=== PATIENT | male | born 1965 | race African-American/Black ===

== ENCOUNTER 2023-08-22 13:41 | Inpatient (IN) | payer MEDICAID, SELFPAY ==
--- NOTE | ~2023-08-22 | CT_ITS ---
EXAMINATION: CT HEAD WITHOUT CONTRAST CLINICAL INFORMATION: Altered mental status COMPARISON: None available. TECHNIQUE: Contiguous axial imaging was performed from the skull base to vertex without intravenous administration of contrast. This CT examination was performed using dose optimization techniques as appropriate, variously including the following: *Automated exposure control *Adjustment of mA and/or kV according to patient size (this includes techniques or standardized protocols for targeted exams where dose is matched to indication/reason for exam; i.e. extremities or head) *Use of iterative reconstruction technique DLP: 1007 mGy-cm FINDINGS: There is no evidence of acute intracranial hemorrhage or edematous territorial infarction. No abnormal mass effect or midline shift is seen. Hernandez to white matter differentiation is well preserved. No abnormal extra-axial fluid collections are identified. The ventricles are normal in size. No abnormal attenuation in the brain parenchyma. No acute calvarial fracture.. Paranasal sinuses and mastoid air cells are well-aerated. CT/CT head/brain wo IV con IMPRESSION: No CT evidence of acute intracranial hemorrhage or edematous large vessel territorial infarction.
--- NOTE | ~2023-08-22 | XR_ITS ---
EXAMINATION: XR CHEST CLINICAL INFORMATION: Mental status change COMPARISON: None available. TECHNIQUE: Frontal view of the chest was obtained. FINDINGS: The lung volumes are low. The cardiac silhouette is enlarged. Hilar and mediastinal contours are unremarkable. Question atelectasis or small infiltrate at the right lung base. The left lung is clear. Question small right pleural effusion. No left pleural effusion. No pneumothorax. XR/XR chest 1V IMPRESSION: Low lung volumes. Enlarged cardiac silhouette. Question atelectasis or small infiltrate at the right lung base and small right pleural effusion.
--- NOTE | 2023-08-22 13:56 | ECG_ITS ---
Test Reason : AMS Blood Pressure : / mmHG Vent. Rate : 064 BPM Atrial Rate : 064 BPM P-R Int : 262 ms QRS Dur : 156 ms QT Int : 554 ms P-R-T Axes : 059 -80 089 degrees QTc Int : 571 ms Sinus rhythm with 1st degree A-V block Possible Left atrial enlargement Left axis deviation Left bundle branch block Abnormal ECG No previous ECGs available Referred By: Liz Schwartz Electronically Signed By:Valentin Weber
[2023-08-22 14:56] VITALS: BP 118/78; PULSE 65; O2SAT 95; BMI 57.0
--- NOTE | 2023-08-22 15:01 | PC.NURSE ---
Addendum entered by Jennifer Eastman 08/22/23 15:02: Notified Eben of the refusal of patient for any labs/IV Original Note: Refusing IV or blood work. will notify provider when one signs up
[2023-08-22 16:13] LABS: Glucose, Whole Blood 82 mg/dL (60-115)
--- NOTE | 2023-08-22 16:13 | ED_ITS ---
HPI - General Adult General Chief complaint: General Medical Stated complaint: AMS, diabetic Time Seen by Provider: 08/22/23 15:51 Source: patient Mode of arrival: EMS History of Present Illness ED Provider: Dr Bah HPI narrative: 57-year-old male who states that he was standing for 3 hours out in the sun at the [place] and then [place] at the bus station and sat down and felt as though he needed to eat something and that his blood sugar was going low, he states he no longer takes medication for his diabetes and he is also endorsing wanting to leave. He is alert and oriented x3. He denies any alcohol/cigarette smoking/illicit drug use/marijuana use. Related Data Allergies Allergy/AdvReac Type Severity Reaction Status Date / Time No Known Allergies Allergy Verified 08/22/23 15:00 Review of Systems 2 Review of Systems: Pertinent positives and negatives as stated in [facility] Past Medical History Source: nursing notes reviewed Medical History (Updated 08/22/23 @ 20:49 by DAVID Reeves) CHF exacerbation Social History Social History Advance Directives: No Advance Directives Information Provided: No Do you have a plan to hurt others: No Plan Physical Exam ED Vital Signs: Vital Signs - 24 hr 08/22/23 17:13 Temperature 98.2 F Pulse Rate 66 Respiratory Rate 18 Blood Pressure 92/54 L Pulse Oximetry 94 Oxygen Delivery Method Room Air BMI result Body Mass Index 57.0 VITAL SIGNS: Reviewed. GENERAL: Well developed, well nourished, in no acute distress. HEAD: Normocephalic/atraumatic EYES: PERRLA, EOMI EARS: Ext canals without abnormality NOSE: Nares patent bilateral OROPHARYNX: no oral lesions noted, posterior pharynx clear NECK: Supple, no adenopathy LUNGS: Normal breath sounds. No adventitious sounds or accessory muscle use. CARDIOVASCULAR: Regular rate and rhythm without noted murmurs, no JVD 1+ bilateral lower extremity edema ABDOMEN: Soft, non-tender, non-distended with bowel sounds. MUSCULOSKELETAL: No tenderness, deformities, or effusions noted on gross inspection. EXTREMITIES: No cyanosis, clubbing or edema. SKIN: Inspection of the skin reveals no rashes NEUROLOGIC: Alert and oriented x 4. Strength and sensation to light touch were grossly intact x 4. Medications Administered Generic Name Dose Route Start Last Admin Trade Name Freq PRN Reason Stop Dose Admin Sodium Chloride 1,000 mls @ 75 mls/hr 08/22/23 20:30 08/22/23 21:02 Ns IVCONT 75 mls/hr .[id number] MOISE Administration Discontinued Medications Generic Name Dose Route Start Last Admin Trade Name Freq PRN Reason Stop Dose Admin Sodium Chloride 1,000 mls @ 999 mls/hr 08/22/23 16:15 08/22/23 17:27 Ns IV 08/22/23 17:15 Not Given .Q1H1M MOISE Potassium Chloride 10 meq in 100 mls @ 100 mls/hr 08/22/23 17:30 08/22/23 20:13 Potassium Chloride/H20 IV 08/22/23 19:29 0 mls/hr Q1H MOISE Infusion Piperacillin Sod/Tazobactam 50 mls @ 100 mls/hr 08/22/23 17:28 08/22/23 19:24 Sod 3.375 gm/ Sodium Chloride IV 08/22/23 17:57 Infused ONCE ONE Infusion Midodrine 2.5 mg 08/22/23 19:48 08/22/23 20:18 Midodrine Hcl 2.5 Mg Tablet PO 08/22/23 19:49 2.5 mg ONCE ONE Administration Potassium Chloride 60 meq 08/22/23 17:26 08/22/23 17:50 Potassium Chloride Er 20 Meq Tab.Er.Prt PO 08/22/23 17:27 60 meq ONCE ONE Administration Procedures EJ/Peripheral Line Arm L: Time Out Performed: No Skin Cleansed in Sterile Fashion: Yes Size (gauge): 18 IV Secured and Dressing Applied: Yes Patient Tolerated Procedure: well Additional Comments: IV placed under ultrasound guidance Arm R: Time Out Performed: No Skin Cleansed in Sterile Fashion: Yes Size (gauge): 18 IV Secured and Dressing Applied: Yes Patient Tolerated Procedure: well Additional Comments: IV placed under ultrasound guidance Medical Decision Making Medical Decision Making [facility] Narrative: 1620: 57-year-old male with history and clinical presentation, DDX: CHF, illicit drugs, hypoglycemia, heat exhaustion/dehydration I requested medical records from [facility] as patient reported that he had recently been admitted to that facility. Patient has significant past medical history hypertension, HLD, nonischemic cardiomyopathy with LV EF 10-15% and recent V-tach cardiac arrest in 03/21/2023 and has a significant history of depression with anxiety, cocaine use, liver cirrhosis and CKD. On my review of his workup today hematologic indices appear to be chronically stable without leukocytosis, the microcytic anemia is stable and consistent with patient's lab values from [facility] 2 days ago. Chemistry indices demonstrate a hypokalemia and will be repleted with 20 mEq via IV and 60 mEq orally and this is likely reflective of patient's use of diuretics. Renal function appears to be mildly worsened when compared to [facility] values and likely responsible for the increase in BNP which is lower than values at [facility]. Patient also did not have significant bibasilar rales although there was 1+ pitting edema to bilateral lower extremities. Chest x-ray here demonstrates possible infiltrate and patient will be empirically treated with Zosyn. Patient is not hypoxic or tachypneic, but is noted to be in FRANKLIN when compared to documentation from [facility], will replete potassium and then proceed with diuresis but at this time I do not feel it is vidal to diurese until potassium levels are somewhat replaced. I did discuss admission with the patient at bedside, he is agreeable for admission. 190: I discussed the case with inpatient hospitalist who accepts admission. Differential Diagnosis Differential Diagnoses: The differential diagnosis associated with the presentation includes Please see the discussion above Admission/Observation Consideration of admission/observation: Escalation of care including admission/observation considered Please see the discussion above Consult Healthcare Provider Management of the patient was discussed with: Hospitalist Please see the discussion above Lab Data MDM Lab Attestation statement: I reviewed the patient's lab results. Please see the discussion above 08/22/23 16:04 08/22/23 16:04 Labs: Lab Results 08/22/23 08/22/23 08/22/23 Range/Units 16:04 16:05 16:10 WBC 5.2 (4.8-10.8) X10*3/uL RBC 5.64 (4.60-5.80) X10*6/uL Hgb 12.0 L (14.0-18.0) g/dl Hct 37.6 L (42.0-52.0) % MCV 66.7 L (80.0-98.0) fL MCH 21.3 L (27.0-33.0) pg MCHC 31.9 (31.0-36.0) g/dl RDW 24.5 H (11.0-16.0) % Plt Count 91 L (160-400) X10*3/uL MPV Not Reportable Immature Gran % (Auto) Cancelled Neut % (Auto) Cancelled Lymph % (Auto) Cancelled [place] % (Auto) Cancelled Eos % (Auto) Cancelled Baso % (Auto) Cancelled Lymph # (Auto) Cancelled [place] # (Auto) Cancelled Eos # (Auto) Cancelled Baso # (Auto) Cancelled Abs Immat Gran (auto) Cancelled Absolute Neuts (auto) Cancelled Absolute Nucleated RBC 0.000 (0.0-0.012) X10*3/uL Nucleated RBC % (auto) 0.0 (0.0-0.2) /100WBC Neutrophils % (Manual) 52 (45-73) % Band Neutrophils % 0 L (3-5) % Lymphocytes % (Manual) 35 (20-40) % Monocytes % (Manual) 13 H (2-11) % Abs Neuts (Manual) 2.7 (2.0-8.3) X10*3/uL Lymphocytes # (Manual) 1.8 (1.2-4.9) X10*3/uL Monocytes # (Manual) 0.7 (0.1-1.2) X10*3/uL Platelet Estimate DECREASED (NORMAL) Plt Morphology Comment NORMAL RBC Morphology NOTED Target Cells 1+ (5-14) /OIF Sodium 137 (135-145) mmol/L Potassium 2.9 L* (3.3-5.1) mmol/L Chloride 90 L (96-108) mmol/L Carbon Dioxide 35 H (22-29) mmol/L Anion Gap 15 (12-20) BUN 50 H (9-16) mg/dL Creatinine 2.16 H (0.5-1.4) mg/dL Estim Creat Clear Calc 58.8 Estimated GFR 32 POC Glucose 82 (60-115) mg/dL Random Glucose 74 (60-115) mg/dL Lactic Acid (0.5-2.0) mmol/L Calcium 9.3 (8.4-10.2) mg/dL Magnesium 2.1 (1.6-2.6) mg/dL Total Bilirubin 2.4 H (0.0-1.0) mg/dL Direct Bilirubin 1.7 H (0.0-0.5) mg/dL AST 58 H (5-37) U/L ALT 23 (0-40) U/L Alkaline Phosphatase 142 H (39-117) U/L Troponin I High Sens 27.2 (<3.5-35.0) ng/L B-Natriuretic Peptide 2927 H (<100) pg/mL Total Protein 6.8 (6.5-8.0) g/dL Albumin 3.4 L (3.5-5.0) g/dL Lipase 44 (8-78) U/L Urine Color Yellow Urine Appearance Clear Urine pH 7.5 (5.0-9.0) Ur Specific [place] 1.010 (1.005-1.025) Urine Protein Negative (Neg-Trace) mg/dL Urine Glucose (UA) Negative (Negative) mg/dL Urine Ketones Negative (Negative) mg/dL Urine Blood Negative (Negative) Urine Nitrite Negative (Negative) Ur Leukocyte Esterase Negative (Negative) Urine Opiates Screen Not Detected (Not Detect) Ur Buprenorphine Scrn Not Detected (Not Detect) ng/mL Ur Oxycodone Screen Positive H (Not Detect) ng/mL Urine Methadone Screen Not Detected (Not Detect) ng/mL Urine Fentanyl Screen Not Detected (Not Detect) Ur Barbiturates Screen Not Detected (Not Detect) Ur Phencyclidine Scrn Not Detected (Not Detect) Ur Amphetamines Screen Not Detected (Not Detect) U Benzodiazepines Scrn Not Detected (Not Detect) Urine Cocaine Screen Not Detected (Not Detect) U Marijuana (THC) Screen Not Detected (Not Detect) Ethyl Alcohol < 10 mg/dL Influenza Type A (PCR) NEGATIVE (Negative) Influenza Type B (PCR) NEGATIVE (Negative) RSV RNA Qual (PCR) NEGATIVE (Negative) SARS-CoV-2 RNA (RT-PCR) NEGATIVE (Negative) 08/22/23 Range/Units 17:41 WBC (4.8-10.8) X10*3/uL RBC (4.60-5.80) X10*6/uL Hgb (14.0-18.0) g/dl Hct (42.0-52.0) % MCV (80.0-98.0) fL MCH (27.0-33.0) pg MCHC (31.0-36.0) g/dl RDW (11.0-16.0) % Plt Count (160-400) X10*3/uL MPV Immature Gran % (Auto) Neut % (Auto) Lymph % (Auto) [place] % (Auto) Eos % (Auto) Baso % (Auto) Lymph # (Auto) [place] # (Auto) Eos # (Auto) Baso # (Auto) Abs Immat Gran (auto) Absolute Neuts (auto) Absolute Nucleated RBC (0.0-0.012) X10*3/uL Nucleated RBC % (auto) (0.0-0.2) /100WBC Neutrophils % (Manual) (45-73) % Band Neutrophils % (3-5) % Lymphocytes % (Manual) (20-40) % Monocytes % (Manual) (2-11) % Abs Neuts (Manual) (2.0-8.3) X10*3/uL Lymphocytes # (Manual) (1.2-4.9) X10*3/uL Monocytes # (Manual) (0.1-1.2) X10*3/uL Platelet Estimate (NORMAL) Plt Morphology Comment RBC Morphology Target Cells /OIF Sodium (135-145) mmol/L Potassium (3.3-5.1) mmol/L Chloride (96-108) mmol/L Carbon Dioxide (22-29) mmol/L Anion Gap (12-20) BUN (9-16) mg/dL Creatinine (0.5-1.4) mg/dL Estim Creat Clear Calc Estimated GFR POC Glucose (60-115) mg/dL Random Glucose (60-115) mg/dL Lactic Acid 1.0 (0.5-2.0) mmol/L Calcium (8.4-10.2) mg/dL Magnesium (1.6-2.6) mg/dL Total Bilirubin (0.0-1.0) mg/dL Direct Bilirubin (0.0-0.5) mg/dL AST (5-37) U/L ALT (0-40) U/L Alkaline Phosphatase (39-117) U/L Troponin I High Sens (<3.5-35.0) ng/L B-Natriuretic Peptide (<100) pg/mL Total Protein (6.5-8.0) g/dL Albumin (3.5-5.0) g/dL Lipase (8-78) U/L Urine Color Urine Appearance Urine pH (5.0-9.0) Ur Specific [place] (1.005-1.025) Urine Protein (Neg-Trace) mg/dL Urine Glucose (UA) (Negative) mg/dL Urine Ketones (Negative) mg/dL Urine Blood (Negative) Urine Nitrite (Negative) Ur Leukocyte Esterase (Negative) Urine Opiates Screen (Not Detect) Ur Buprenorphine Scrn (Not Detect) ng/mL Ur Oxycodone Screen (Not Detect) ng/mL Urine Methadone Screen (Not Detect) ng/mL Urine Fentanyl Screen (Not Detect) Ur Barbiturates Screen (Not Detect) Ur Phencyclidine Scrn (Not Detect) Ur Amphetamines Screen (Not Detect) U Benzodiazepines Scrn (Not Detect) Urine Cocaine Screen (Not Detect) U Marijuana (THC) Screen (Not Detect) Ethyl Alcohol mg/dL Influenza Type A (PCR) (Negative) Influenza Type B (PCR) (Negative) RSV RNA Qual (PCR) (Negative) SARS-CoV-2 RNA (RT-PCR) (Negative) Independent Interpretation I performed an independent interpretation of an: EKG Interpretation: Sinus rhythm with first-degree AV block, HR-64, LBBB at baseline, no STEMI, MO- to 62, QRS-156, QTC -571 Radiology Impression Discussion of test interpretation with radiology: I have reviewed the radiologist's reading. Radiologist Impression: Please see the discussion above External Record Review External record reviewed: Outpatient record, Prior outpatient labs, Prior outpatient radiology and Outside ED record Chronic Conditions Patient?s care impacted by: Hypertension CHF, LVEF: 10-15% Critical Care Time Critical Care Time Critical Care Time: Yes Total Critical Care Time: 60 Attestation: I personally attest to this time spent taking care of the patient. Discharge Plan Discharge Clinical Impression: Hypokalemia, FRANKLIN (acute kidney injury), Pneumonia, CHF exacerbation Patient Disposition: Admitted As Inpatient
[2023-08-22 16:23] LABS: Hematocrit 37.6 % (42.0-52.0); Mean Corpuscular HGB Conc 31.9 g/dl (31.0-36.0); Mean Corpuscular Hemoglobin 21.3 pg (27.0-33.0); Mean Corpuscular Volume 66.7 fL (80.0-98.0); Red Blood Count 5.64 X10*6/uL (4.60-5.80); Red Cell Distribution Width 24.5 % (11.0-16.0); White Blood Count 5.2 X10*3/uL (4.8-10.8)
[2023-08-22 16:31] LABS: Appearance Urine Clear; Color Urine Yellow; Glucose Urine UA Negative (Negative); Leukocyte Esterase Urine Negative (Negative); Nitrite Urine Negative (Negative); PH 7.5 (5.0-9.0); Urine Blood Negative (Negative); Urine Ketones Negative (Negative); Urine Protein Negative (Neg-Trace)
[2023-08-22 16:32] LABS: Platelet Count 91 X10*3/uL (160-400)
[2023-08-22 16:35] LABS: Amphetamine Screen Urine Not Detected (Not Detect); Barbiturates, Urine Not Detected (Not Detect); Benzodiazepines Screen Urine Not Detected (Not Detect); Buprenorphine Scr Not Detected (Not Detect); Cannabinoid Screen Urine Not Detected (Not Detect); Cocaine Screen Urine Not Detected (Not Detect); Fentanyl, urine Not Detected (Not Detect); Methadone Screen, Urine Not Detected (Not Detect); Opiate Screen Urine Not Detected (Not Detect); Oxycodone Screen Urine Positive (Not Detect); Phencyclidine Screen Urine Not Detected (Not Detect)
[2023-08-22 16:44] LABS: B Type Natriuretic Peptide 2927 pg/mL (<100)
[2023-08-22 16:46] LABS: Troponin-I High Sensitivity 27.2 ng/L (<3.5-35.0)
[2023-08-22 16:53] LABS: Alanine Aminotransferase 23 U/L (0-40); Albumin Level 3.4 g/dL (3.5-5.0); Alkaline Phosphatase 142 U/L (39-117); Anion Gap 15 (12-20); Aspartate Amino Transferase 58 U/L (5-37); Bilirubin Direct 1.7 mg/dL (0.0-0.5); Bilirubin Total 2.4 mg/dL (0.0-1.0); Blood Urea Nitrogen 50 mg/dL (9-16); Calcium 9.3 mg/dL (8.4-10.2); Carbon Dioxide 35 mmol/L (22-29); Chloride 90 mmol/L (96-108); Creatinine Clr Calc Pharmacy 58.8; Estimated Glomerular Filt Rate 32; Glucose Random 74 mg/dL (60-115); Lipase 44 U/L (8-78); Potassium 2.9 mmol/L (3.3-5.1); Sodium 137 mmol/L (135-145); Total Protein 6.8 g/dL (6.5-8.0)
[2023-08-22 17:02] LABS: Influenza A PCR NEGATIVE (Negative); Influenza B PCR NEGATIVE (Negative); Resp Syncy Virus RNA Qual PCR NEGATIVE (Negative); SARS COV2 PCR INHOUSE NEGATIVE (Negative)
[2023-08-22 17:13] VITALS: BP 92/54; PULSE 66; RESP 18; TEMP 36.8; O2SAT 94
[2023-08-22] MEDS: Piperacillin Sodium/Tazobactam 3.375 GM in 0.9 % Sodium Chloride 50 ML IV (17:50)
[2023-08-22] MEDS: Potassium Chloride ER 20 MEQ TAB.ER.PRT 60 MEQ PO (17:50)
[2023-08-22 17:55] LABS: Lymphocytes Absolute Manual 1.8 X10*3/uL (1.2-4.9); Lymphocytes Percent Manual 35 % (20-40); Monocytes Absolute Manual 0.7 X10*3/uL (0.1-1.2); Monocytes Percent Manual 13 % (2-11); Neutrophils Percent Manual 52 % (45-73); RBC Morphology NOTED
[2023-08-22 17:56] LABS: Target Cells 1+ (5-14) /OIF
[2023-08-22 17:58] LABS: Platelet Estimate DECREASED (NORMAL); Platelet Morphology Comment NORMAL
[2023-08-22 18:00] LABS: Band Neutrophils Percent 0 % (3-5); Neutrophils Absolute Manual 2.7 X10*3/uL (2.0-8.3)
[2023-08-22 18:10] LABS: Ethanol < 10 mg/dL; Magnesium 2.1 mg/dL (1.6-2.6)
[2023-08-22] MEDS: Potassium Chloride/H20 10 MEQ/100 ML PIGGYBACK 100 MEQ IV (19:27)
--- NOTE | 2023-08-22 19:36 | PC.NURSE ---
pt c/o pain to IV site/arm with potassium infusing, rate lowered, NS piggy back as well per MD.
--- NOTE | 2023-08-22 19:55 | P.HPHOSP_ITS ---
History of Present Illness Date of Service: 08/22/23 Attending physician on admission: Tamara Hartman Chief Complaint: dehydrated 57-year-old male with history of heart failure reduced ejection fraction (EF 10- 15%) hepatic cirrhosis, CKD stage 3, COPD, history of cardiac arrest, left bundle-branch block, hyperlipidemia, CLARE on CPAP presented to ED for reported altered mental status. The patient reports he was out in the sun for at least 3 hours and felt as if he needed to eat something and had not consumed any fluids. He felt as if his blood sugar was low and EMS transferred him to the hospital. He states that he did take his medications last night but did not take his medications this morning as he was not home. He denies any fevers, chills, abdominal pain, nausea, vomiting, diarrhea, cough, lightheadedness, chest pain. Reports SOB at baseline, no acute worsening, no worsening jade. Denies any illicit substance use, alcohol use, or cigarette smoking. He is oriented x3 and reports feeling dehydrated with dry mouth. He was recently admitted to [facility] from 08/12-08/18 due to acute hypoxemic respiratory failure secondary to CHF exacerbation. He was diuresed with IV Lasix and underwent ultrasound-guided thoracentesis draining 1.7 L yellow fluid with analysis showing transudative effusions. He was discharged home on 40 mg torsemide b.i.d. which he reports taking as prescribed except for missing this morning's dose. He also reports compliance with all other medications again with the exception of this morning when he missed his medications. Vital signs are stable the blood pressure is chronically soft at 92/54 on admission. There is no leukocytosis. He has a stable microcytic anemia with H/H 12.0/37.6%. Creatinine 2.16, baseline around 1.4. BUN 50. Potassium 2.9, chloride 90, CO2 35. LFTs chronically elevated, consistent with baseline. Troponin 27.2. BNP 2927, decreased from priors noted at [facility] up to 5000. Urine tox screen positive for opiates. UA unremarkable. CXR shows possible atelectasis versus small infiltrate at the right lung base and possible small right pleural effusion. Given clinical history, pt will be admitted for further management of FRANKLIN in setting of dehydration. Review of Systems 2 Review of Systems: Yes all other systems are reviewed and are negative [facility] Medical History (Updated 08/22/23 @ 20:49 by DAVID Reeves) CHF exacerbation Social History Smoked in Last 30 Days: No Use of substances other than those prescribed or required for medical reasons: No Advance Directives: No Advance Directives Information Provided: No Do you have a plan to hurt others: No Plan Meds Allergies Allergy/AdvReac Type Severity Reaction Status Date / Time No Known Allergies Allergy Verified 08/22/23 15:00 Physical Exam 2 Vital Signs and Narrative: Vital Signs: Last Vital Signs Temp 98.2 F 08/22/23 17:13 Pulse 66 08/22/23 17:13 Resp 18 08/22/23 17:13 BP 92/54 L 08/22/23 17:13 Pulse Ox 94 08/22/23 17:13 O2 Del Method Room Air 08/22/23 17:13 BMI result Body Mass Index 57.0 Constitutional - Awake and Alert, No apparent distress Eyes - PERRLA, EOMI Cardiovascular - S1S2, RRR, 1+ ble edema Respiratory - Normal lung expansion, Normal respiratory effort, No respiratory distress, CTA bilaterally Gastrointestinal - NT / ND; +BS; No rebound or guarding Extremities - no calf tenderness bilaterally, no swelling Skin - Warm/Dry. Contracted skin feet bilaterally Neurological - Alert & oriented x3, CN II-XII in tact, 5/5 strength BUE and BLE Psychological - Appropriate affect Results Labs 08/23/23 04:54 08/22/23 16:04 Labs: Laboratory Results - last 24 hr 08/22/23 08/22/23 08/22/23 16:04 16:05 16:10 MCV 66.7 L MCH 21.3 L MCHC 31.9 RDW 24.5 H Plt Count 91 L MPV Not Reportable Immature Gran % (Auto) Cancelled Neut % (Auto) Cancelled Lymph % (Auto) Cancelled [place] % (Auto) Cancelled Eos % (Auto) Cancelled Baso % (Auto) Cancelled Lymph # (Auto) Cancelled [place] # (Auto) Cancelled Eos # (Auto) Cancelled Baso # (Auto) Cancelled Abs Immat Gran (auto) Cancelled Absolute Neuts (auto) Cancelled Absolute Nucleated RBC 0.000 Nucleated RBC % (auto) 0.0 Neutrophils % (Manual) 52 Band Neutrophils % 0 L Lymphocytes % (Manual) 35 Monocytes % (Manual) 13 H Abs Neuts (Manual) 2.7 Lymphocytes # (Manual) 1.8 Monocytes # (Manual) 0.7 Platelet Estimate DECREASED Plt Morphology Comment NORMAL RBC Morphology NOTED Target Cells 1+ (5-14) Anion Gap 15 Estim Creat Clear Calc 58.8 Estimated GFR 32 POC Glucose 82 Random Glucose 74 Lactic Acid Calcium 9.3 Magnesium 2.1 Total Bilirubin 2.4 H Direct Bilirubin 1.7 H AST 58 H ALT 23 Alkaline Phosphatase 142 H Troponin I High Sens 27.2 B-Natriuretic Peptide 2927 H Total Protein 6.8 Albumin 3.4 L Lipase 44 Urine Color Yellow Urine Appearance Clear Urine pH 7.5 Ur Specific [place] 1.010 Urine Protein Negative Urine Glucose (UA) Negative Urine Ketones Negative Urine Blood Negative Urine Nitrite Negative Ur Leukocyte Esterase Negative Urine Opiates Screen Not Detected Ur Buprenorphine Scrn Not Detected Ur Oxycodone Screen Positive H Urine Methadone Screen Not Detected Urine Fentanyl Screen Not Detected Ur Barbiturates Screen Not Detected Ur Phencyclidine Scrn Not Detected Ur Amphetamines Screen Not Detected U Benzodiazepines Scrn Not Detected Urine Cocaine Screen Not Detected U Marijuana (THC) Screen Not Detected Ethyl Alcohol < 10 Influenza Type A (PCR) NEGATIVE Influenza Type B (PCR) NEGATIVE RSV RNA Qual (PCR) NEGATIVE SARS-CoV-2 RNA (RT-PCR) NEGATIVE 08/22/23 17:41 MCV MCH MCHC RDW Plt Count MPV Immature Gran % (Auto) Neut % (Auto) Lymph % (Auto) [place] % (Auto) Eos % (Auto) Baso % (Auto) Lymph # (Auto) [place] # (Auto) Eos # (Auto) Baso # (Auto) Abs Immat Gran (auto) Absolute Neuts (auto) Absolute Nucleated RBC Nucleated RBC % (auto) Neutrophils % (Manual) Band Neutrophils % Lymphocytes % (Manual) Monocytes % (Manual) Abs Neuts (Manual) Lymphocytes # (Manual) Monocytes # (Manual) Platelet Estimate Plt Morphology Comment RBC Morphology Target Cells Anion Gap Estim Creat Clear Calc Estimated GFR POC Glucose Random Glucose Lactic Acid 1.0 Calcium Magnesium Total Bilirubin Direct Bilirubin AST ALT Alkaline Phosphatase Troponin I High Sens B-Natriuretic Peptide Total Protein Albumin Lipase Urine Color Urine Appearance Urine pH Ur Specific [place] Urine Protein Urine Glucose (UA) Urine Ketones Urine Blood Urine Nitrite Ur Leukocyte Esterase Urine Opiates Screen Ur Buprenorphine Scrn Ur Oxycodone Screen Urine Methadone Screen Urine Fentanyl Screen Ur Barbiturates Screen Ur Phencyclidine Scrn Ur Amphetamines Screen U Benzodiazepines Scrn Urine Cocaine Screen U Marijuana (THC) Screen Ethyl Alcohol Influenza Type A (PCR) Influenza Type B (PCR) RSV RNA Qual (PCR) SARS-CoV-2 RNA (RT-PCR) Imaging Radiologist's Impressions: Impressions Chest X-Ray 08/22/23 14:23 IMPRESSION: Low lung volumes. Enlarged cardiac silhouette. Question atelectasis or small infiltrate at the right lung base and small right pleural effusion. Head CT 08/22/23 14:40 IMPRESSION: No CT evidence of acute intracranial hemorrhage or edematous large vessel territorial infarction. Assessment and Plan (1) FRANKLIN (acute kidney injury): Status: Acute (2) Hypokalemia: Status: Acute Plan 57-year-old male with history of heart failure reduced ejection fraction (EF 10- 15%) hepatic cirrhosis, CKD stage 3, COPD, history of cardiac arrest, paroxysmal atrial fibrillation, left bundle-branch block, hyperlipidemia, CLARE on CPAP admitted for further management of FRANKLIN #Acute kidney injury- suspect prerenal from hypovolemia in setting of dehydration with diuretic usage -Creat 2.1, baseline 1.4, BUN 50. background CKD stage 3 -Gentle IVF -avoid nephrotoxins, hold diuretics -monitor I&O -follow renal function/lytes #Acute hypokalemia -likely r/t diuretic use -repleted in ED. Unable to tolerate IV, given 60meq KCL ER -Contineu IVF -follow lytes #Contraction alkalosis -likely r/t poor fluid intake/dehydration with diuretic usage -co2 35, baseline around 27 -ivf -follow lytes #Possible infiltrate RLL -no fevers, chills, leukocytosis. no productive cough -doubt pneumonia. hold on further abx at this time #HfrEF -bnp elevated likely chronic but also due to FRANKLIN. Clinically not in exacebration -hold torsemide for now # paroxysmal atrial fibrillation-rate controlled -continue Xarelto for anticoagulation -continue amiodarone, metoprolol for rate #Soft blood pressures- no hypotension -chronic in setting of hepatic cirrhosis complicated by dehydration -continue ivf, midodrine #Chronic microcytic anemia -h/h above transfusion threshold #COPD -no exacerbation, albuterol prn #Hepatic cirrhosis -complicated by ascites, coagulopathy, transaminitis, encephalopathy, thrombocytopenia -continue rifaximin, lactulose # CLARE -CPAP at bedtime DVT prophylaxis-Xarelto Full code Patient requires inpatient stay at least 2 midnights due to acute kidney injury due to dehydration patient with severely reduced ejection fraction who will require gentle IV fluid resuscitation with very close monitoring of renal function and electrolyte levels as well as close monitoring of intake and output. Quality Stroke Does the patient have a stroke diagnosis?: No VTE Prior VTE?: No VTE Risk Level:: Medical - moderate - high VTE Device Contraindication: Treatment Not Indicated VTE Drug Contraindication: N/A - Med Ordered
--- NOTE | 2023-08-22 20:13 | PC.NURSE ---
hospitalist at bedside. pt c/o IV site still. potassium stopped per provider, will try PO instead.
[2023-08-22] MEDS: Midodrine HCl 2.5 MG TABLET PO (20:18)
[2023-08-22] MEDS: 0.9 % Sodium Chloride 1,000 ML 75 ML IVCONT (21:02)
--- NOTE | 2023-08-22 21:36 | PC.NURSE ---
attempt to ask pt question for assessment. pt falling asleep, responds yes to all questions even when inaccurate. will try again when pt is able to engage in conversation
[2023-08-22 22:31] VITALS: BP 98/70; PULSE 62; RESP 20; TEMP 36.7; O2SAT 95
--- NOTE | 2023-08-22 22:53 | PC.NURSE ---
pt's O2 dropped while sleeping, 82% w/ good pleth. woke pt, sat up in bed, O2 at 94%. few minutes later O2 dropped again. attempt to placed pt on 2L NC, pt refused. yelling at staff. aware
--- NOTE | 2023-08-22 23:45 | PC.NURSE ---
pt reporting pain in RAC MD INDIRA placed new US 18g to LAC, RAC removed at this time
[2023-08-23] VITALS (7 sets, daily range): BP systolic 85–108; BP diastolic 50–76; PULSE 61–80; RESP 17–21; TEMP 36.2–36.8; O2SAT 93–97
--- NOTE | 2023-08-23 04:15 | PC.NURSE ---
pt awake, took CPAP off, requesting more food, mad that we dont have more to offer him.
--- NOTE | 2023-08-23 04:21 | PC.NURSE ---
admission notes: pt BIBA from [facility], c/o diabetic emergency , POC 82, decreased PO intake while outside so felt dehydrated. admit for FRANKLIN, hypokalemic. strict I+O, gentle IVF. CPAP for sleep, destat to 77%. US 18g LAC, BPs soft. hx of CKD stage 3, CHF, DM. pt hard to arouse on arrival, now alert and very vocal about how he feels about the care that is being provided.
[2023-08-23 05:22] LABS: MANUAL DIFF FLAG NO
[2023-08-23 05:35] LABS: Basophils Percent Auto 0.4 % (0-2); Eosinophils Percent Auto 0.5 % (0-4); Hematocrit 38.2 % (42.0-52.0); Hemoglobin 12.1 g/dl (14.0-18.0); Imm Gran Abs Auto 0.01 X10*3/uL (0.00-0.03); Imm Gran Pct Auto 0.2 % (0.0-0.4); Lymphocytes Absolute Auto 1.2 X10*3/uL (1.2-4.9); Lymphocytes Percent Auto 21.5 % (20-40); Mean Corpuscular HGB Conc 31.7 g/dl (31.0-36.0); Mean Corpuscular Hemoglobin 21.3 pg (27.0-33.0); Mean Corpuscular Volume 67.4 fL (80.0-98.0); Monocytes Absolute Auto 0.7 X10*3/uL (0.1-1.2); Monocytes Percent Auto 11.6 % (2-11); Neutrophils Absolute Auto 3.7 x10*3/uL (2.0-8.3); Neutrophils Percent Auto 65.8 % (45-73); Platelet Count 88 X10*3/uL (160-400); Red Blood Count 5.67 X10*6/uL (4.60-5.80); Red Cell Distribution Width 24.8 % (11.0-16.0); White Blood Count 5.7 X10*3/uL (4.8-10.8)
[2023-08-23 05:44] LABS: Anion Gap 15 (12-20); Blood Urea Nitrogen 46 mg/dL (9-16); Calcium 9.3 mg/dL (8.4-10.2); Carbon Dioxide 34 mmol/L (22-29); Chloride 94 mmol/L (96-108); Creatinine Clr Calc Pharmacy 73.5; Estimated Glomerular Filt Rate 41; Glucose Random 95 mg/dL (60-115); Potassium 4.4 mmol/L (3.3-5.1); Sodium 139 mmol/L (135-145)
[2023-08-23 08:20] LABS: Iron 37 mcg/dL (45-160); Percent Iron Saturation 13 % (15-50); Total Iron Binding Capacity 294 mcg/dL (228-428); Unsaturated Iron Binding 257 ug/dL
--- NOTE | 2023-08-23 08:34 | PHA.MEDREC ---
Pharmacy Consult ? Medication Reconciliation Pharmacy has completed the medication reconciliation. Spoke with patient. OF NOTE: patient confirms he should be on Xarelto but admitted he does not take it as it cause him to become nauseous and throw up. Provider aware.
--- NOTE | 2023-08-23 08:40 | PC.NURSE ---
Pt requesting to leave AMA, admitting provider at bedside
[2023-08-23 08:41] LABS: Ferritin 58 ng/mL (20-250)
--- NOTE | 2023-08-23 08:44 | PM.DS ---
DS: Providers Provider Date of Service: 08/24/23 Date of admission: 08/22/23 20:22 Primary care physician: Bryce Fletcher MD DS: Diagnosis Discharge Diagnosis (1) FRANKLIN (acute kidney injury): Status: Acute (2) Hypokalemia: Status: Acute DS: Summary Hospital Course Hospital Course: from initial hpi: 57-year-old male with history of heart failure reduced ejection fraction (EF 10-15%) hepatic cirrhosis, CKD stage 3, COPD, history of cardiac arrest, left bundle-branch block, hyperlipidemia, CLARE on CPAP presented to ED for reported altered mental status. The patient reports he was out in the sun for at least 3 hours and felt as if he needed to eat something and had not consumed any fluids. He felt as if his blood sugar was low and EMS transferred him to the hospital. He states that he did take his medications last night but did not take his medications this morning as he was not home. He denies any fevers, chills, abdominal pain, nausea, vomiting, diarrhea, cough, lightheadedness, chest pain. Reports SOB at baseline, no acute worsening, no worsening jade. Denies any illicit substance use, alcohol use, or cigarette smoking. He is oriented x3 and reports feeling dehydrated with dry mouth. He was recently admitted to [facility] from 08/12-08/18 due to acute hypoxemic respiratory failure secondary to CHF exacerbation. He was diuresed with IV Lasix and underwent ultrasound-guided thoracentesis draining 1.7 L yellow fluid with analysis showing transudative effusions. He was discharged home on 40 mg torsemide b.i.d. which he reports taking as prescribed except for missing this morning's dose. He also reports compliance with all other medications again with the exception of this morning when he missed his medications. Vital signs are stable the blood pressure is chronically soft at 92/54 on admission. There is no leukocytosis. He has a stable microcytic anemia with H/H 12.0/37.6%. Creatinine 2.16, baseline around 1.4. BUN 50. Potassium 2.9, chloride 90, CO2 35. LFTs chronically elevated, consistent with baseline. Troponin 27.2. BNP 2927, decreased from priors noted at [facility] up to 5000. Urine tox screen positive for opiates. UA unremarkable. CXR shows possible atelectasis versus small infiltrate at the right lung base and possible small right pleural effusion. Given clinical history, pt will be admitted for further management of FRANKLIN in setting of dehydration. hospital course: Patient was admitted for acute kidney injury likely due to dehydration and hypotension. He was given IV fluids and iv albumin and creatinine returned to baseline, hypotension improved. . For his chronic systolic CHF his diuretics were hold due to dehydration, now that he is euvolemic and restarted as outpatient. For paroxysmal atrial fibrillation he was recommended to continue on amiodarone, metoprolol, Xarelto. For chronic microcytic anemia, likely combination iron deficiency and possible underlying thalassemia. For COPD remained stable. For liver cirrhosis continued on Xifaxan. For CLARE uses CPAP at bedtime. Patient is feeling better will be discharged home. Time Attestation Discharge Coordination Time (in mins): 32 Quality: Safe Use of Opioids Does Pt have an Active Cancer Diagnosis on the Problem List?: No Quality: Stroke Does the patient have a stroke diagnosis?: No Physical Exam Vital Signs: Vital Signs: Last Vital Signs Temp 98.3 F 08/23/23 08:04 Pulse 79 08/23/23 08:04 Resp 21 H 08/23/23 08:04 BP 85/50 L 08/23/23 08:04 Pulse Ox 95 08/23/23 08:04 O2 Del Method Room Air 08/23/23 08:04 BMI result Body Mass Index 57.0 General: AO X 3, no acute distress Resp: CTA bilateral, no accessory muscles used CVS: S1,S2,RRR GI: soft, non tender, non distended Neuro: motor grossly intact, alert Psych: appropriate affect, appropriate insight DS: Data Data Completed and Pending Labs on day of discharge: Laboratory Results - last 24 hr 08/22/23 08/22/23 08/22/23 16:04 16:05 16:10 WBC 5.2 RBC 5.64 Hgb 12.0 L Hct 37.6 L MCV 66.7 L MCH 21.3 L MCHC 31.9 RDW 24.5 H Plt Count 91 L MPV Not Reportable Immature Gran % (Auto) Cancelled Neut % (Auto) Cancelled Lymph % (Auto) Cancelled [place] % (Auto) Cancelled Eos % (Auto) Cancelled Baso % (Auto) Cancelled Lymph # (Auto) Cancelled [place] # (Auto) Cancelled Eos # (Auto) Cancelled Baso # (Auto) Cancelled Abs Immat Gran (auto) Cancelled Absolute Neuts (auto) Cancelled Absolute Nucleated RBC 0.000 Nucleated RBC % (auto) 0.0 Neutrophils % (Manual) 52 Band Neutrophils % 0 L Lymphocytes % (Manual) 35 Monocytes % (Manual) 13 H Abs Neuts (Manual) 2.7 Lymphocytes # (Manual) 1.8 Monocytes # (Manual) 0.7 Platelet Estimate DECREASED Plt Morphology Comment NORMAL RBC Morphology NOTED Target Cells 1+ (5-14) Sodium 137 Potassium 2.9 L* Chloride 90 L Carbon Dioxide 35 H Anion Gap 15 BUN 50 H Creatinine 2.16 H Estim Creat Clear Calc 58.8 Estimated GFR 32 POC Glucose 82 Random Glucose 74 Lactic Acid Calcium 9.3 Magnesium 2.1 Iron TIBC % Saturation Unsat Iron Binding Ferritin Total Bilirubin 2.4 H Direct Bilirubin 1.7 H AST 58 H ALT 23 Alkaline Phosphatase 142 H Troponin I High Sens 27.2 B-Natriuretic Peptide 2927 H Total Protein 6.8 Albumin 3.4 L Lipase 44 Urine Color Yellow Urine Appearance Clear Urine pH 7.5 Ur Specific [place] 1.010 Urine Protein Negative Urine Glucose (UA) Negative Urine Ketones Negative Urine Blood Negative Urine Nitrite Negative Ur Leukocyte Esterase Negative Urine Opiates Screen Not Detected Ur Buprenorphine Scrn Not Detected Ur Oxycodone Screen Positive H Urine Methadone Screen Not Detected Urine Fentanyl Screen Not Detected Ur Barbiturates Screen Not Detected Ur Phencyclidine Scrn Not Detected Ur Amphetamines Screen Not Detected U Benzodiazepines Scrn Not Detected Urine Cocaine Screen Not Detected U Marijuana (THC) Screen Not Detected Ethyl Alcohol < 10 Influenza Type A (PCR) NEGATIVE Influenza Type B (PCR) NEGATIVE RSV RNA Qual (PCR) NEGATIVE SARS-CoV-2 RNA (RT-PCR) NEGATIVE 08/22/23 08/23/23 17:41 04:54 WBC 5.7 RBC 5.67 Hgb 12.1 L Hct 38.2 L MCV 67.4 L MCH 21.3 L MCHC 31.7 RDW 24.8 H Plt Count 88 L MPV Not Reportable Immature Gran % (Auto) 0.2 Neut % (Auto) 65.8 Lymph % (Auto) 21.5 [place] % (Auto) 11.6 H Eos % (Auto) 0.5 Baso % (Auto) 0.4 Lymph # (Auto) 1.2 [place] # (Auto) 0.7 Eos # (Auto) 0.0 Baso # (Auto) 0.0 Abs Immat Gran (auto) 0.01 Absolute Neuts (auto) 3.7 Absolute Nucleated RBC 0.000 Nucleated RBC % (auto) 0.0 Neutrophils % (Manual) Band Neutrophils % Lymphocytes % (Manual) Monocytes % (Manual) Abs Neuts (Manual) Lymphocytes # (Manual) Monocytes # (Manual) Platelet Estimate Plt Morphology Comment RBC Morphology Target Cells Sodium 139 Potassium 4.4 D Chloride 94 L Carbon Dioxide 34 H Anion Gap 15 BUN 46 H Creatinine 1.73 H Estim Creat Clear Calc 73.5 Estimated GFR 41 POC Glucose Random Glucose 95 Lactic Acid 1.0 Calcium 9.3 Magnesium Iron 37 L TIBC 294 % Saturation 13 L Unsat Iron Binding 257 Ferritin 58 Total Bilirubin Direct Bilirubin AST ALT Alkaline Phosphatase Troponin I High Sens B-Natriuretic Peptide Total Protein Albumin Lipase Urine Color Urine Appearance Urine pH Ur Specific [place] Urine Protein Urine Glucose (UA) Urine Ketones Urine Blood Urine Nitrite Ur Leukocyte Esterase Urine Opiates Screen Ur Buprenorphine Scrn Ur Oxycodone Screen Urine Methadone Screen Urine Fentanyl Screen Ur Barbiturates Screen Ur Phencyclidine Scrn Ur Amphetamines Screen U Benzodiazepines Scrn Urine Cocaine Screen U Marijuana (THC) Screen Ethyl Alcohol Influenza Type A (PCR) Influenza Type B (PCR) RSV RNA Qual (PCR) SARS-CoV-2 RNA (RT-PCR) Discharge Plan Discharge Anticipated Discharge Date/Time: 08/23/23 08:43 Patient Disposition: Home, Self-Care Discharge Diagnosis: dehydration, franklin Referrals: Bryce Fletcher MD [Primary Care Provider] - 1 Week Discharge Medications: Continued atorvastatin 40 mg tablet 40 mg PO DAILY torsemide 20 mg tablet 40 mg PO BID amiodarone 200 mg tablet 200 mg PO DAILY midodrine 2.5 mg tablet 2.5 mg PO BID metoprolol succinate 25 mg tablet extended release 24 hr 25 mg PO DAILY oxycodone 5 mg tablet 2.5 mg PO Q6H PRN (Reason: moderate pain) cholecalciferol (vitamin D3) [Vitamin D3] 50 mcg (2,000 unit) capsule 50 mcg PO DAILY Xifaxan 550 mg tablet 550 mg PO BID Xarelto 20 mg tablet 20 mg PO DAILY Discharge Orders: Discharge Order (Routine); Ordered 08/24/23 Ordered By: Chris Bermudez Diet: Advance to usual diet Activity on Discharge: As tolerated Stand Alone Forms: Patient Portal Discharge page, Against Medical Advice Print Language: [place] Care Plan Goals: manage chf Health Concerns: dehydration, hypotension Plan of Treatment: follow up with cardiology Assessment: see above
--- NOTE | 2023-08-23 09:45 | PC.NURSE ---
Pt reports he wants to stay in hospital at this time, reports he no longer wants to leave AMA. Provider aware
[2023-08-23] MEDS: 0.9 % Sodium Chloride 1,000 ML 75 ML IVCONT ×2 (09:46→21:56)
--- NOTE | 2023-08-23 10:03 | P.PNIM_ITS ---
Subjective Subjective Date of Service: 08/23/23 Interval History: feeling less dizzy Physical Exam 2 Vital Signs: Vital Signs: Last Vital Signs Temp 98.3 F 08/23/23 08:04 Pulse 77 08/23/23 09:43 Resp 17 08/23/23 09:43 BP 101/76 08/23/23 09:43 Pulse Ox 97 08/23/23 09:43 O2 Del Method Room Air 08/23/23 09:43 BMI result Body Mass Index 57.0 General: AO X 3, no acute distress Resp: CTA bilateral, no accessory muscles used CVS: S1,S2,RRR GI: soft, non tender, non distended Neuro: motor grossly intact, alert Psych: appropriate affect, appropriate insight Objective Data Active Medications Acetaminophen (Acetaminophen 325 Mg Tablet) 650 mg PO Q6H PRN PRN Reason: Pain, Mild (Pain Scale 1-3), fever or headache Calcium Carbonate (Calcium Carbonate 750 Mg Tab.Chew) 750 mg PO Q4H PRN PRN Reason: Heartburn Sodium Chloride (Ns) 1,000 mls @ 75 mls/hr IVCONT .[id number] [facility] Last Admin: 08/23/23 09:46 Dose: 75 mls/hr Documented By: VIOLETA Albumin Human (Kedbumin 25 %) 100 mls @ 100 mls/hr IV Q1H [facility] Stop: 08/23/23 12:14 Magnesium Hydroxide (Milk Of Magnesia 30 Ml Oral.Susp) 30 ml PO DAILY PRN PRN Reason: Constipation Melatonin (Melatonin 3 Mg Tablet) 6 mg PO BEDTIME PRN PRN Reason: Insomnia Sodium Chloride (0.9 % Sodium Chloride Flush 3 Ml Syringe) 3 ml IVFLUSH QSHIFT [facility] Last Admin: 08/23/23 07:32 Dose: Not Given Documented By: VIOLETA Non-Admin Reason: IV Running Labs 08/23/23 04:54 08/23/23 04:54 Labs: Laboratory Results - last 24 hr 08/22/23 08/22/23 08/22/23 16:04 16:05 16:10 MCV 66.7 L MCH 21.3 L MCHC 31.9 RDW 24.5 H Plt Count 91 L MPV Not Reportable Immature Gran % (Auto) Cancelled Neut % (Auto) Cancelled Lymph % (Auto) Cancelled [facility] % (Auto) Cancelled Eos % (Auto) Cancelled Baso % (Auto) Cancelled Lymph # (Auto) Cancelled [facility] # (Auto) Cancelled Eos # (Auto) Cancelled Baso # (Auto) Cancelled Abs Immat Gran (auto) Cancelled Absolute Neuts (auto) Cancelled Absolute Nucleated RBC 0.000 Nucleated RBC % (auto) 0.0 Neutrophils % (Manual) 52 Band Neutrophils % 0 L Lymphocytes % (Manual) 35 Monocytes % (Manual) 13 H Abs Neuts (Manual) 2.7 Lymphocytes # (Manual) 1.8 Monocytes # (Manual) 0.7 Platelet Estimate DECREASED Plt Morphology Comment NORMAL RBC Morphology NOTED Target Cells 1+ (5-14) Anion Gap 15 Estim Creat Clear Calc 58.8 Estimated GFR 32 POC Glucose 82 Random Glucose 74 Lactic Acid Calcium 9.3 Magnesium 2.1 Iron TIBC % Saturation Unsat Iron Binding Ferritin Total Bilirubin 2.4 H Direct Bilirubin 1.7 H AST 58 H ALT 23 Alkaline Phosphatase 142 H Troponin I High Sens 27.2 B-Natriuretic Peptide 2927 H Total Protein 6.8 Albumin 3.4 L Lipase 44 Urine Color Yellow Urine Appearance Clear Urine pH 7.5 Ur Specific [place] 1.010 Urine Protein Negative Urine Glucose (UA) Negative Urine Ketones Negative Urine Blood Negative Urine Nitrite Negative Ur Leukocyte Esterase Negative Urine Opiates Screen Not Detected Ur Buprenorphine Scrn Not Detected Ur Oxycodone Screen Positive H Urine Methadone Screen Not Detected Urine Fentanyl Screen Not Detected Ur Barbiturates Screen Not Detected Ur Phencyclidine Scrn Not Detected Ur Amphetamines Screen Not Detected U Benzodiazepines Scrn Not Detected Urine Cocaine Screen Not Detected U Marijuana (THC) Screen Not Detected Ethyl Alcohol < 10 Influenza Type A (PCR) NEGATIVE Influenza Type B (PCR) NEGATIVE RSV RNA Qual (PCR) NEGATIVE SARS-CoV-2 RNA (RT-PCR) NEGATIVE 08/22/23 08/23/23 17:41 04:54 MCV 67.4 L MCH 21.3 L MCHC 31.7 RDW 24.8 H Plt Count 88 L MPV Not Reportable Immature Gran % (Auto) 0.2 Neut % (Auto) 65.8 Lymph % (Auto) 21.5 [facility] % (Auto) 11.6 H Eos % (Auto) 0.5 Baso % (Auto) 0.4 Lymph # (Auto) 1.2 [facility] # (Auto) 0.7 Eos # (Auto) 0.0 Baso # (Auto) 0.0 Abs Immat Gran (auto) 0.01 Absolute Neuts (auto) 3.7 Absolute Nucleated RBC 0.000 Nucleated RBC % (auto) 0.0 Neutrophils % (Manual) Band Neutrophils % Lymphocytes % (Manual) Monocytes % (Manual) Abs Neuts (Manual) Lymphocytes # (Manual) Monocytes # (Manual) Platelet Estimate Plt Morphology Comment RBC Morphology Target Cells Anion Gap 15 Estim Creat Clear Calc 73.5 Estimated GFR 41 POC Glucose Random Glucose 95 Lactic Acid 1.0 Calcium 9.3 Magnesium Iron 37 L TIBC 294 % Saturation 13 L Unsat Iron Binding 257 Ferritin 58 Total Bilirubin Direct Bilirubin AST ALT Alkaline Phosphatase Troponin I High Sens B-Natriuretic Peptide Total Protein Albumin Lipase Urine Color Urine Appearance Urine pH Ur Specific [place] Urine Protein Urine Glucose (UA) Urine Ketones Urine Blood Urine Nitrite Ur Leukocyte Esterase Urine Opiates Screen Ur Buprenorphine Scrn Ur Oxycodone Screen Urine Methadone Screen Urine Fentanyl Screen Ur Barbiturates Screen Ur Phencyclidine Scrn Ur Amphetamines Screen U Benzodiazepines Scrn Urine Cocaine Screen U Marijuana (THC) Screen Ethyl Alcohol Influenza Type A (PCR) Influenza Type B (PCR) RSV RNA Qual (PCR) SARS-CoV-2 RNA (RT-PCR) Assessment and Plan (1) FRANKLIN (acute kidney injury): Status: Acute Plan 59M PMH hfref, liver cirrhosis, ckd III, copd, pafib, LBBB, hld, clare presented with dizziness, found to have franklin and hypotension Acute kidney injury on CKD 3 and hypotension due to dehydration from diuretics and heat (not sepsis) Improved with IV fluids, will give 2 units of albumin Monitor Hold diuretics Acute hypokalemia Replace and monitor Chronic systolic CHF Continue Toprol, holding diuretics Paroxysmal atrial fibrillation Toprol, amiodarone, Xarelto COPD Stable Liver cirrhosis Continue rifaximin, lactulose CLARE CPAP at bedtime DVT prophylaxis with Xarelto Full code reason for continued hospitalization: Still hypovolemic with hypotension Quality Stroke Does the patient have a stroke diagnosis?: No VTE Prior VTE?: No VTE Risk Level:: Medical - moderate - high VTE Device Contraindication: Treatment Not Indicated VTE Drug Contraindication: N/A - Med Ordered
[2023-08-23] MEDS: Albumin Human 25 % 100 ML IV ×2 (10:26→11:29)
[2023-08-23] MEDS: oxyCODONE HCl Immed Release 5 MG TABLET 2.5 MG PO (11:30)
--- NOTE | 2023-08-23 12:59 | PC.NURSE ---
Provider aware of soft BPs, awaiting further orders
--- NOTE | 2023-08-23 19:15 | PC.NURSE ---
assumed care of pt at this time. pt is axox4 resting comfortably in stretcher. pt denies pain/concerns at this time. call gu within reach.
[2023-08-23] MEDS: oxyCODONE HCl Immed Release 5 MG TABLET PO (21:37)
[2023-08-23] MEDS: Midodrine HCl 2.5 MG TABLET PO (21:37)
[2023-08-23] MEDS: rifAXIMin 550 MG TABLET PO (21:37)
[2023-08-24 06:53] LABS: Hematocrit 39.8 % (42.0-52.0); Hemoglobin 12.3 g/dl (14.0-18.0); Mean Corpuscular HGB Conc 30.9 g/dl (31.0-36.0); Mean Corpuscular Hemoglobin 21.3 pg (27.0-33.0); Red Blood Count 5.77 X10*6/uL (4.60-5.80); Red Cell Distribution Width 25.4 % (11.0-16.0); White Blood Count 6.7 X10*3/uL (4.8-10.8)
[2023-08-24 06:54] LABS: Platelet Count 82 X10*3/uL (160-400)
[2023-08-24 07:26] LABS: Alanine Aminotransferase 24 U/L (0-40); Albumin Level 3.8 g/dL (3.5-5.0); Alkaline Phosphatase 133 U/L (39-117); Anion Gap 14 (12-20); Aspartate Amino Transferase 73 U/L (5-37); Bilirubin Direct 1.2 mg/dL (0.0-0.5); Bilirubin Total 2.2 mg/dL (0.0-1.0); Blood Urea Nitrogen 39 mg/dL (9-16); Calcium 9.2 mg/dL (8.4-10.2); Carbon Dioxide 30 mmol/L (22-29); Chloride 99 mmol/L (96-108); Creatinine Clr Calc Pharmacy 102.5; Estimated Glomerular Filt Rate > 60; Glucose Fasting 97 mg/dL (60-99); Magnesium 2.2 mg/dL (1.6-2.6); Potassium 4.3 mmol/L (3.3-5.1); Sodium 139 mmol/L (135-145); Total Protein 7.8 g/dL (6.5-8.0)
[2023-08-24 07:37] VITALS: BP 126/87; PULSE 73; RESP 14; TEMP 36.2; O2SAT 95
[2023-08-24 09:03] VITALS: BP 118/79; PULSE 81
[2023-08-24] MEDS: Atorvastatin Calcium 40 MG TABLET PO (09:03)
[2023-08-24] MEDS: Amiodarone HCL 200 MG TABLET PO (09:03)
[2023-08-24] MEDS: Cholecalciferol (Vitamin D3) 25 MCG TABLET 50 MCG PO (09:03)
[2023-08-24] MEDS: Metoprolol Succinate ER 25 MG TAB.ER.24H PO (09:03)
[2023-08-24] MEDS: Midodrine HCl 2.5 MG TABLET PO (09:03)
[2023-08-24] MEDS: rifAXIMin 550 MG TABLET PO (09:04)
[2023-08-24] MEDS: 0.9 % Sodium Chloride Flush 3 ML SYRINGE IVFLUSH (09:04)
[2023-08-24] MEDS: oxyCODONE HCl Immed Release 5 MG TABLET PO (09:08)
--- NOTE | 2023-08-24 12:24 | MHC.CM.PN ---
Addendum entered by Ysabel Hernandez 08/24/23 14:26: [facility] CALLED CM BACK AND EXPLAINED THEY CANNOT TRANSPORT PTS BIKE RIDE CANCELLED CM CALLED [facility] WHO STATED IT IS A STATE LAW, THEY CANNOT TRANSPORT ELECTRIC BIKES CM MET WITH PT ALONG WITH PTS RN AND EXPLAINED THERE WAS NO WAY TO GET PTS BIKE HOME AT THIS TIME HE WOULD HAVE TO GO HOME AND MAKE ARRANGEMENTS TO PICK IT UP WITH A FRIEND OR FAMILY MEMBER AT A LATER TIME [facility] TRANSPORT ARRANGED HOWEVER HE REFUSED TO GET INTO THE CAR WHEN IT ARRIVED AND DEMANDED TO TAKE HIS BIKE AND SAID HE WOULD TRY TO RIDE IT HOME Original Note: PT REPORTS HE LIVES ALONE AND HAS BEEN INDEPENDENT WITH CARE, BUT HAS A HARD TIME, HE SAYS HE IS WAITING FOR [facility]KA[facility] TO COMPLETE THEIR ASSESSMENT TO DETERMINE HOW MANY CLOUD ENGINEER 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 PT WAS INFORMED OF THE ABOVE INFORMATION, AND THAT ALVARO WOULD SEE HIM AT HOME ON THURSDAY AT 1330 HOURS PT HAS A WALKER AND CANE AT HOME AND ALSO WHAT HE CALLS A MEDICAL BIKE, WHICH APPEARS TO BE AN ELECTRIC [place] BIKE PT SAYS HE HAS A HCP NAMING HIS SISTER, JOHANNE THE AGENT, COPY REQUESTED PCP: BRIDGET MCKEON PT WILL DC HOME TODAY TRANSPORTATION ARRANGED VIA [employer] FOR 1400 HOURS
--- NOTE | 2023-08-24 13:26 | HO.SKINPHOTO ---
Location: Left buttock and Coccyx Foams applied to left buttock and coccyx, wound care consult ordered. Foams applied to bilateral heels for prevention.
--- NOTE | 2023-08-24 14:30 | PC.NURSE ---
Nohemi set up for pt d/c home. Pt was aware [facility] could not take bike with him before discharge. When pt was brought down to main entrance pt refused/ Security called to main entrance hallway to help with situation. Pt refused to take lyft and states he will take his bike home. Security was able to help pt get home with bike safely.
== END 2023-08-24 14:30 | disposition home health service (06) | DRG 422 ==
LOC: HO.ED 19:11 → HO.EDOVER 20:39 → HO.S3 08-23 19:22
PROVIDERS: Emergency Medicine; Admitting Provider Physician Assistant; Emergency Provider Student in an Organized Health Care Education/Training Program; PCP Internal Medicine; Visit Provider Internal Medicine
DX: E86.0 Dehydration (principal); E86.1 Hypovolemia; N17.9 Acute kidney failure, unspecified; E87.3 Alkalosis; J18.9 Pneumonia, unspecified organism; I95.9 Hypotension, unspecified; I50.22 Chronic systolic (congestive) heart failure; J44.0 Chronic obstructive pulmonary disease with (acute) lower respiratory infection; K74.60 Unspecified cirrhosis of liver; Z86.74 Personal history of sudden cardiac arrest; D50.9 Iron deficiency anemia, unspecified; N18.30 Chronic kidney disease, stage 3 unspecified; I48.0 Paroxysmal atrial fibrillation; E87.6 Hypokalemia; Z20.822 Contact with and (suspected) exposure to COVID-19; Z79.01 Long term (current) use of anticoagulants; Z79.899 Other long term (current) drug therapy
CPT/HCPCS: 0241U; 36415; 70450; 71045; 80048; 80076; 80307; 81003; 82728; 82947; 83540; 83605; 83690; 83735; 83880; 84484; 85007; 85025; 85027; 87040; 93005; 94660; 99285; J2543; J3480; P9047

== ENCOUNTER → 2023-08-22 13:56 | Outpatient (BNV) | payer MEDICAID, SELFPAY | PROVIDERS: Admitting Provider Physician Assistant; Emergency Provider Student in an Organized Health Care Education/Training Program; PCP Internal Medicine; Visit Provider Internal Medicine Cardiovascular Disease | DX: R94.31 Abnormal electrocardiogram [ECG] [EKG] (principal) | CPT/HCPCS: 93010 ==

== ENCOUNTER → 2023-08-22 20:22 | Outpatient (BNV) | payer MEDICAID, SELFPAY | PROVIDERS: Admitting Provider Physician Assistant; Emergency Provider Student in an Organized Health Care Education/Training Program; PCP Internal Medicine; Visit Provider Internal Medicine | DX: N17.9 Acute kidney failure, unspecified (principal); E87.6 Hypokalemia | CPT/HCPCS: 99223; 99232; 99239 ==